=== PATIENT | female | born 1995 | race Caucasian/White ===

== ENCOUNTER 2019-07-16 07:58 | Emergency (ER) | payer MEDICAID, SELFPAY ==
[2019-07-16 08:02] VITALS: BP 127/90; PULSE 115; RESP 16; TEMP 37; O2SAT 98
--- NOTE | 2019-07-16 08:11 | DI.RAD_ITS ---
EXAM: XR FOOT RT COMPLETE INDICATION: prox 5th metatarsal pain s/p fall. COMPARISON: No exams were available for comparison TECHNIQUE: 2D digital imaging was performed. FINDINGS: Three views were obtained. Please see report for radiographs of the ankle. No additional findings i n the foot. IMPRESSION:
--- NOTE | 2019-07-16 08:11 | DI.RAD_ITS ---
EXAM: XR KNEE RT 3V AP,LAT,PEACE INDICATION: lateral/fibular head pain s/p fall. COMPARISON: No exams were available for comparison TECHNIQUE: 2D digital imaging was performed. FINDINGS: Three views were obtained. No bony or soft tissue abnormality seen. IMPRESSION:
--- NOTE | 2019-07-16 08:14 | W.ED.GENAD ---
Discharge Plan Disposition Patient Disposition: HOME Discharge Details Chief Complaint: Orthopedic Clinical Impression: Right ankle sprain Primary Care Provider: Jacob Rao ED Provider: Frank Collins Home Meds and New Rx's Prescriptions: No Action No Known Home Meds RF: 0 Discharge Instructions Instructions: Ankle Sprain (ED) Additional Instructions: Your x-rays were negative for an acute bony injury. Most likely ligamentous sprain. Best treated with supportive care which includes rest, ice and elevation. Wear orthopedic boot as tolerated. Weight-bear as tolerated. Take Tylenol and/or Motrin for pain and swelling. Stand Alone Forms: Work Release Medical Decision Making This is a nontoxic-appearing 24-year-old female presenting to the emergency department with right ankle injury status post fall yesterday evening while intoxicated. No LOC or head injury. She complains of pain along the lateral aspect of her right ankle. She also has notable pain along the fibular head and base the fifth metatarsal on exam. No significant swelling or ecchymosis. X-rays are negative for acute fracture. X-rays include knee ankle and foot films. Discussed supportive care. Will place in a walker boot with crutches and instructed to follow-up with her PCP/orthopedics should her symptoms persist over the next 1 to 2 weeks. Return precautions provided. She is stable for discharge at this time. HPI General Date/Time Provider Initiated Documentation: 07/16/19 08:01. HPI Narrative: Patient is a 24-year-old female with a significant history for previous right ankle surgery for chronic instability who presents to the emergency department with right ankle injury less than 12 hours prior to arrival. Patient states that she was intoxicated and fell down a hill injuring her right ankle. She felt a pop and has had pain and swelling along the lateral anterior aspect of the right ankle since. She also reports knee pain. She also expresses some foot pain with ambulation. She has been able to place mild amount of weight over the extremity however reports to give discomfort. She has chronic numbness and tingling in her toes secondary to her previous ankle surgery. Patient states that she is also been dealing with a sore throat. Patient denies any fevers. No nausea or vomiting. No other URI symptoms. Related Data Home Medications Medication Instructions Recorded Confirmed Unknown [No Known Home Meds] 07/16/19 07/16/19 Allergies Allergy/AdvReac Type Severity Reaction Status Date / Time benzol peroxide Allergy facial Uncoded 07/16/19 08:06 swelling General Stated Complaint: Orthopedic MEGAN: 4 Review of Systems Constitutional Constitutional: Denies chills, Denies fever(s) and Denies lethargy ENT Ears, Nose, Mouth, and Throat: Denies vertigo, Denies dizziness, Denies mouth pain, Denies nasal congestion, Denies nasal discharge, Denies post nasal drip, Denies sinus pain, Denies sinus pressure, Reports sore throat, Denies throat swelling and Denies tongue swelling Respiratory Respiratory: Denies cough Gastrointestinal Gastrointestinal: Denies diarrhea, Denies nausea and Denies vomiting Musculoskeletal Musculoskeletal: Reports abnormal gait, Reports joint swelling and Reports tingling Neurologic Neurologic: Reports abnormal gait, Denies vertigo, Denies dizziness and Reports tingling Hematologic/Lymphatic Hematologic/Lymphatic: Denies easy bleeding and Denies easy bruising Allergic/Immunologic Allergic/Immunologic: Denies throat swelling and Denies tongue swelling PFSH Medical History Anxiety Depression Urinary tract infection Vision problem Surgical History Tonsillectomy (~2003) Tooth extraction Family History Mother Depression Father Depression Sister Depression Sister Depression Other Anxiety Social History Smoking/Tobacco Use Status: Never Drug use: Daily Substance use type: marijuana Do you feel safe in your relationship?: Yes Exam Const General: cooperative, healthy appearing, comfortable and no acute distress [facility] Head: normal to inspection Mouth: oral mucosae normal Throat: posterior oropharynx abnormal erythema; no edema and no exudates Eyes General: appearance normal, both eyes and all related structures Alignment and Position: alignment normal Neck Neck: normal visual inspection, full ROM and no lymphadenopathy Chest Chest: normal inspection of the chest Resp Effort & Inspection: normal respiratory effort Skin Trauma: no lacerations or abrasions Extrem Right lower extremity: normal to inspection, normal capillary refill, knee Details: tenderness Location: of the lateral joint line, ankle Details: tenderness Location: of the lateral malleolus, of the medial malleolus and of the anterior talofibular ligament and foot Details: tenderness Location: of the base of the 5th metatarsal; no edema Course Vital Signs Vital signs: Vital Signs Temperature 37 C 07/16/19 08:02 Pulse 115 H 07/16/19 08:02 Respiratory Rate 16 07/16/19 08:02 Blood Pressure 127/90 07/16/19 08:02 Pulse Oximetry 98 07/16/19 08:02 Temperature 37 C 07/16/19 08:02 Temperature Source Skin 07/16/19 08:02 Pulse 115 H 07/16/19 08:02 Respiratory Rate 16 07/16/19 08:02 Respiratory Effort Non-Labored 07/16/19 08:02 Blood Pressure 127/90 07/16/19 08:02 Blood Pressure Position Sitting 07/16/19 08:02 Pulse Oximetry 98 07/16/19 08:02 Oxygen Delivery Method Room Air 07/16/19 08:02 Oxygen Flow Rate 0 07/16/19 08:02 Pain Level 10 07/16/19 08:02
--- NOTE | 2019-07-16 08:40 | DI.RAD_ITS ---
EXAM: XR ANKLE RT COMPLETE INDICATION: lateral/medial ankle pain s/p fall. COMPARISON: No exams were available for comparison TECHNIQUE: 2D digital imaging was performed. FINDINGS: Three views were obtained. The ankle mortise appears well maintained. Minimal spurring noted at the dorsum of the talonavicular joint. Prominent osteophyte of plantar fascia attachment on the calcane us. No other bony abnormality seen. IMPRESSION:
== END 2019-07-16 09:06 | disposition home or self-care (01) ==
PROVIDERS: Emergency Provider Physician Assistant; PCP Pediatrics
DX: S93.401A Sprain of unspecified ligament of right ankle, initial encounter (principal); F10.120 Alcohol abuse with intoxication, uncomplicated; W17.81XA Fall down embankment (hill), initial encounter
CPT/HCPCS: 29515; 73562; 87880; 99283; 73610; 73630; 87081; 99282; E0114; L4361

== ENCOUNTER 2019-08-17 15:25 | Emergency (ER) | payer MEDICAID, SELFPAY ==
[2019-08-17 15:29] VITALS: BP 145/86; PULSE 122; RESP 16; TEMP 36.2; O2SAT 99
--- NOTE | 2019-08-17 16:29 | ED.GENADUL_ITS ---
Discharge Plan Disposition Patient Disposition: HOME Discharge Details Chief Complaint: Orthopedic Clinical Impression: Encounter for cast removal Primary Care Provider: Jacob Rao ED Provider: Johnathan Leiva Home Meds and New Rx's Prescriptions: No Action Nexplanon 68 mg Implant 1 implant SUBDERMAL ONCE RF: 0 Medical Decision Making 24yo f here requesting cast removal as she was unable to follow-up with orthopedics as scheduled today. Patient has no acute injury or complaint. No pain. Heavy ED patient volume and acuity at time of evaluation. I saw patient in triage to initiate care. I explained to patient that I would contact her processing specialist and confirm plan for cast removal. I explained that she would need to wait until clinical space available for treatment. Patient refused to wait and decided to leave. Patient eloped from ED. NO BILLABLE CARE OR PROCEDURE RENDERED TODAY. HPI General Mode of arrival: ambulatory . Date/Time Provider Initiated Documentation: 08/17/19 15:38 . Limitations to Documentation: no limitations . Information obtained by: patient . HPI Narrative: 24yo f here here requesting removal of cast. Patient has cast placed a few weeks ago for tendon injury. Patient notes no pain or swelling. Patient had appointment for routine cast removal today and she states she could not get to [place] today for cast removal as scheduled and she was instructed to come here for cast removal. We have not received a call from [facility] orthopedics regarding this plan. Related Data Home Medications Medication Instructions Recorded Confirmed etonogestrel [Nexplanon] 1 implant SUBDERMAL ONCE 08/17/19 08/17/19 Allergies Allergy/AdvReac Type Severity Reaction Status Date / Time benzol peroxide Allergy facial Uncoded 08/17/19 15:36 swelling General Stated Complaint: Orthopedic MEGAN: 4 Review of Systems Musculoskeletal Musculoskeletal: Reports as per HPI [facility] Medical History Anxiety Depression Urinary tract infection Vision problem Surgical History Tonsillectomy (~2003) Tooth extraction Family History Mother Depression Father Depression Sister Depression Sister Depression Other Anxiety Social History Smoking/Tobacco Use Status: Never Alcohol Intake: never Drug use: Daily Substance use type: marijuana Do you feel safe at home: Yes Do you feel safe in your relationship?: Yes Exam Const General: cooperative, healthy appearing and comfortable Neuro General: alert and awake Cognition: normal cognition Speech: speech normal Extrem Right lower extremity: lower leg (cast intact) Course Vital Signs Vital signs: Vital Signs Temperature 36.2 C L 08/17/19 15:29 Pulse 122 H 08/17/19 15:29 Respiratory Rate 16 08/17/19 15:29 Blood Pressure 145/86 H 08/17/19 15:29 Pulse Oximetry 99 08/17/19 15:29 Temperature 36.2 C L 08/17/19 15:29 Temperature Source Skin 08/17/19 15:29 Pulse 122 H 08/17/19 15:29 Respiratory Rate 16 08/17/19 15:29 Respiratory Effort Non-Labored 08/17/19 15:36 Blood Pressure 145/86 H 08/17/19 15:29 Blood Pressure Position Supine 08/17/19 15:29 Pulse Oximetry 99 08/17/19 15:29 Oxygen Delivery Method Room Air 08/17/19 15:29 Oxygen Flow Rate 0 08/17/19 15:29 Pain Level 0 08/17/19 15:29
== END 2019-08-17 16:25 | disposition home or self-care (01) ==
PROVIDERS: Emergency Provider Student in an Organized Health Care Education/Training Program; PCP Pediatrics
DX: Z53.29 Procedure and treatment not carried out because of patient's decision for other reasons (principal); Z47.89 Encounter for other orthopedic aftercare

== ENCOUNTER 2019-08-23 16:19 | Outpatient (REF) | payer MEDICAID, SELFPAY ==
--- NOTE | 2019-08-23 15:30 | PAPFT_PTH ---
PATIENT: Dede Cervantes LOC: [facility] U#:[id number] AGE/SX: 24/F ROOM: RE08/23/[address]: SEBASTIÁN Fisher : 1995 BED: DIS: 08/23/2019 SPEC #: [id number] RECD: 08/23/19 17:33 STATUS: BOBY REMarcellus #: [id number] NEEMA: 08/23/19 15:[address]: Judi Alvarenga DEPT: [facility] Cytology RECD BY: Laura Bettencourt ENTERED: 08/23/19 17:33 SP TYPE: PAPFT OTHR DR: Jacob Rao MD Tissues: 1 - CX/ENDOCX FOR PAP SMEARS Procedures: PAP THIN PREP/UVM Screening Comments: [id number]
[2019-08-27 13:56] LABS: Chlamydia Result Negative (Negative)
[2019-08-27 15:09] LABS: GC Result Negative (Negative)
== END 2019-08-23 16:39 ==
LOC: LBN 16:19
PROVIDERS: PCP Pediatrics; Visit Provider Nurse Practitioner Family
DX: Z11.3 Encounter for screening for infections with a predominantly sexual mode of transmission (principal); Z12.4 Encounter for screening for malignant neoplasm of cervix
CPT/HCPCS: 87491; 87591; 88142

== ENCOUNTER 2020-01-28 12:55 | Outpatient (REF) | payer MEDICAID, SELFPAY ==
[2020-01-29 12:54] LABS: Chlamydia Result Negative (Negative); GC Result Negative (Negative)
== END 2020-01-28 13:15 ==
LOC: LBN 12:55
PROVIDERS: Visit Provider Nurse Practitioner Family
DX: R30.0 Dysuria (principal); Z11.3 Encounter for screening for infections with a predominantly sexual mode of transmission
CPT/HCPCS: 87491; 87591; 87086

== ENCOUNTER 2020-05-27 02:56 | Outpatient (CLI) | payer MEDICAID, SELFPAY ==
[2020-05-27 14:18] LABS: ALT 45 U/L (14-59); AST 19 U/L (15-37); Albumin 3.6 g/dL (3.4-5.0); Alkaline Phosphatase 103 U/L (46-116); Anion Gap 5.1 mmol/L (3-11); BUN 12 mg/dL (7-18); Bilirubin, Total 0.5 mg/dL (0.2-1.0); CO2 24.9 mmol/L (21.0-32.0); CREATININE 0.93 mg/dL (0.55-1.02); Calcium 9.3 mg/dL (8.5-10.1); Calculated LDL 100 mg/dL (<100); Chloride 110 mmol/L (98-107); Cholesterol 160 mg/dL (<200); Glucose 89 mg/dL (74-106); HDL Cholesterol 37 mg/dL (40-60); Potassium 4.3 mmol/L (3.5-5.1); Sodium 140 mmol/L (136-145); TSH (W/Ref FT4) 1.64 uIU/mL (0.36-3.74); Total Protein 6.6 g/dL (6.4-8.2); Triglyceride 119 mg/dL (<150)
== END 2020-05-27 03:16 ==
DX: F33.40 Major depressive disorder, recurrent, in remission, unspecified (principal); G47.00 Insomnia, unspecified; I10 Essential (primary) hypertension
CPT/HCPCS: 36415; 80053; 80061; 84443

== ENCOUNTER 2020-06-20 08:42 | Outpatient (CLI) | payer MEDICAID, SELFPAY ==
[2020-06-22 22:35] LABS: Patient Race White; SARS-CoV-2 RNA Undetected (Undetected); SARS-CoV-2 Specimen Source Nasopharynx
== END 2020-06-20 09:02 ==
DX: Z11.59 Encounter for screening for other viral diseases (principal)
CPT/HCPCS: U0003

== ENCOUNTER 2020-08-18 17:17 | Outpatient (REF) | payer MEDICAID, SELFPAY ==
[2020-08-21 05:03] LABS: Patient Race White; SARS-CoV-2 RNA Undetected (Undetected); SARS-CoV-2 Specimen Source Nasal
== END 2020-08-18 17:37 ==
LOC: LBN 17:17
PROVIDERS: Visit Provider Nurse Practitioner Family
DX: J06.9 Acute upper respiratory infection, unspecified (principal)
CPT/HCPCS: U0003

== ENCOUNTER 2020-10-06 12:45 | Outpatient (REF) | payer MEDICAID, SELFPAY ==
--- NOTE | 2020-10-06 11:15 | PAPFT_PTH ---
PATIENT: Dede Cervantes LOC: N U#:[id number] AGE/SX: 25/F ROOM: RE10/06/[address]: SEBASTIÁN Fisher : 1995 BED: DIS: 10/06/2020 SPEC #: [id number] RECD: 10/06/20 12:54 STATUS: BOBY REMarcellus #: [id number] NEEMA: 10/06/20 11:[address]: Judi Alvarenga DEPT: [facility] Cytology RECD BY: Laura Bettencourt ENTERED: 10/06/20 12:54 SP TYPE: PAPFT OTHR DR: Bing Marcelo APRN Tissues: 1 - CX/ENDOCX FOR PAP SMEARS Procedures: PAP THIN PREP/UVM Screening Comments: [id number]
[2020-10-07 15:39] LABS: GC Result Negative (Negative)
[2020-10-07 19:29] LABS: Chlamydia Result Positive (Negative)
== END 2020-10-06 13:05 ==
LOC: LBN 12:45
PROVIDERS: Visit Provider Nurse Practitioner Family
DX: R30.0 Dysuria (principal); Z11.3 Encounter for screening for infections with a predominantly sexual mode of transmission; Z12.4 Encounter for screening for malignant neoplasm of cervix
CPT/HCPCS: 87491; 87591; 88142; 87086

== ENCOUNTER 2020-12-16 02:14 | Outpatient (CLI) | payer MEDICAID, SELFPAY ==
[2020-12-17 13:25] LABS: COVID-19 RT-PCR UVMMC Result Negative (Negative)
== END 2020-12-16 02:15 | disposition home or self-care (01) ==
LOC: LBO 02:15
DX: Z20.822 Contact with and (suspected) exposure to COVID-19 (principal)
CPT/HCPCS: U0003

== ENCOUNTER 2020-12-24 08:21 | Outpatient (CLI) | payer MEDICAID, SELFPAY ==
[2020-12-25 14:22] LABS: COVID-19 RT-PCR UVMMC Result Negative (Negative)
== END 2020-12-24 08:22 | disposition home or self-care (01) ==
DX: Z20.822 Contact with and (suspected) exposure to COVID-19 (principal)
CPT/HCPCS: U0003

== ENCOUNTER 2021-01-22 03:34 | Outpatient (CLI) | payer MEDICAID, SELFPAY ==
[2021-01-23 10:01] LABS: COVID-19 RT-PCR UVMMC Result Negative (Negative)
== END 2021-01-22 03:35 | disposition home or self-care (01) ==
PROVIDERS: Visit Provider Nurse Practitioner Family
DX: Z20.822 Contact with and (suspected) exposure to COVID-19 (principal)
CPT/HCPCS: U0003

== ENCOUNTER 2021-02-04 11:33 | Outpatient (CLI) | payer MEDICAID, SELFPAY ==
--- NOTE | 2021-02-04 10:45 | DI.RAD_ITS ---
Exam(s) XR FOREARM RT XR WRIST RT COMPLETE EXAM: XR WRIST RT COMPLETE and XR forearm RT CLINICAL HISTORY: fall, forearm/wrist pain, M79.601. TECHNIQUE: 2D digital imaging was performed. COMPARISON: CR XR FOREARM RT from 02/04/2021 FINDINGS: BONES: No acute fracture is present. No bony destructive lesion is seen. JOINTS: The carpal bones are normally aligned. The elbow is normally aligned. SOFT TISSUE: Normal. IMPRESSION: No acute fracture or dislocation. DATA REPOSITORY: RADIATION DOSE DELIVERED:
== END 2021-02-04 11:53 ==
PROVIDERS: Visit Provider Physician Assistant
DX: M79.631 Pain in right forearm (principal); M25.531 Pain in right wrist
CPT/HCPCS: 73090; 73110

== ENCOUNTER 2021-04-24 02:26 | Emergency (ER) | payer MEDICAID, SELFPAY ==
[2021-04-24 02:29] VITALS: BP 143/92; PULSE 100; RESP 20; TEMP 36.6; O2SAT 99
--- NOTE | 2021-04-24 02:45 | ED.GENADUL_ITS ---
Discharge Plan Disposition Patient Disposition: HOME Condition: Good Discharge Details Clinical Impression: Dehiscence of closure of skin Primary Care Provider: Bing Marcelo ED Provider: Wellington Figueroa Home Meds and New Rx's Prescriptions: Continued lorazepam [Ativan] 0.5 mg tablet 0.5 mg PO .Q3HS PRN (Reason: anxiety/insomnia) Qty: 7 RF: 0 Nexplanon 68 mg Implant 1 implant SUBDERMAL ONCE RF: 0 Discharge Instructions Instructions: Wound Dehiscence (ED) Additional Instructions: At this time you have a very small area of wound dehiscence. This will take time to heal. It will need to heal from the inside out. The packing will fall out on its own, do not worry about putting it back in. Please continue to take the antibiotic Keflex that was prescribed to you by Dr. Beyer. Please keep the bandage on. Monitor closely for any continued drainage, redness, fever or chills. Please follow-up closely with your plant technical specialist Dr. Beyer. If you notice any worsening of your symptoms, or any new symptoms such as vomiting, diarrhea, fever, chills, shortness of breath, chest pain, numbness, weakness, or fainting , please return immediately to the emergency department for reevaluation. Please follow up with your primary care provider as soon as possible for reassessment and reevaluation. As always, it was a pleasure p articipating in your medical care today. Referrals: Maximino Beyer [ NON-[facility] STAFF PHYSICIAN] - Medical Decision Making This is a pleasant 26-year-old female who presents today for wound recheck. 3 weeks ago she had surgery on her right clavicle after a closed fracture. This was performed by Dr. Beyer. The surgery was uneventful, she has been doing very well, she had absorbable sutures only and Dermabond. Yesterday she noticed a small amount of redness around her postoperative surgical site, she contacted Dr. Beyer's office, and they started her on Keflex. She has taken the first dose. Then this evening while she was sleeping she noticed a small amount of fluid on her neck. She woke up and noticed that there was an area of dehiscence in the surgical site. She came into the ER for further assessment. She denies any new pain, fever or chills. No other complaints at this time. No other modifying factors. Postoperative surgical site appears completely intact aside for a small area that is roughly 7 mm wide in diameter. This area has evidence of dehiscence, and there is a small pocket underneath. No active drainage at this time. Minimal redness surrounding the surgical scar. Minimal warmth. No purulence. No other areas of dehiscence. No significant tenderness over the clavicle. No clinical evidence of a large seroma, or other abscess. The area was gently cleaned with normal saline, a very small amount of iodoform quarter-inch gauze was placed just in the opening. Total length of gauze less than 1 inch. Area was bandaged, redness was marked with marker for demarcation of border. Wound will need to heal through secondary intention secondary to the open pocket beneath the area of dehiscence. Recommend continued Keflex as directed by her plant technical specialist. Bandage was placed over the area. Patient will follow up on Tuesday for already scheduled appointment with Dr. Beyer. With no evidence of significant systemic infection, large abscess, or clinical symptoms of lingering deep infection as she has no fever chills or other complaints, I feel the patient is stable for discharge. Discussed red flags which to return. I have extensively reviewed the treatment plan and discharge instructions with the patient. I have addressed all patient concerns at this time. The patient was made aware of what symptoms to monitor for that would warrant a return to the emergency department. Discussed the plan with the patient, they demonstrate verbal understanding and agreement with our assessment and plan at this time. The documentation in this chart was dictated using [employer] dictation software. Please excuse any dictation errors. HPI General Date/Time Provider Initiated Documentation: 04/24/21 02:29 . HPI Narrative: This is a pleasant 26-year-old female who presents today for wound recheck. 3 weeks ago she had surgery on her right clavicle after a closed fracture. This was performed by Dr. Beyer. The surgery was uneventful, she has been doing very well, she had absorbable sutures only and Dermabond. Yesterday she noticed a small amount of redness around her postoperative surgical site, she contacted Dr. Beyer's office, and they started her on Keflex. She has taken the first dose. Then this evening while she was sleeping she noticed a small amount of fluid on her neck. She woke up and noticed that there was an area of dehiscence in the surgical site. She came into the ER for further assessment. She denies any new pain, fever or chills. No other complaints at this time. No other modifying factors. Related Data Home Medications Medication Instructions Recorded Confirmed Nexplanon 1 implant SUBDERMAL ONCE 08/17/19 02/11/21 lorazepam 0.5 mg tablet 0.5 mg PO .Q3HS PRN #7 tab 11/24/20 02/11/21 Previous Rx's Medication Instructions Recorded lorazepam 0.5 mg tablet 0.5 mg PO .Q3HS PRN #7 tab 11/24/20 Allergies Allergy/AdvReac Type Severity Reaction Status Date / Time benzol peroxide Allergy facial Uncoded 02/03/21 18:49 swelling General Stated Complaint: Recheck MEGAN: 4 Review of Systems All systems reviewed & are unremarkable except as noted in HPI and below PFSH Medical History Anxiety Depression Increased body mass index (BMI) Major depressive disorder, recurrent, unspecified Sinusitis, acute URI (upper respiratory infection) Urinary tract infection Vision problem Surgical History Tonsillectomy (~2003) Tooth extraction Family History Mother Depression Father Depression Sister Depression Asthma Sister Depression Other Anxiety Social History Smoking/Tobacco Use Status: Former Tobacco Use Quit Date: 10/03/14 Tobacco: How many years used: 3 Smoking risk assessment performed?: Yes Alcohol Intake: current Alcohol Intake frequency: a few times a month Alcohol type: wine Drug use: Daily Substance use type: marijuana Caregiver/Support person: Yes Household members: family Housing: house Communication Needs: None Do you need help understanding health information?: Never Pets and animals: Yes Pets and animals: cat(s), dog(s) and horse(s) Sexually active: Yes Do you think of yourself as: straight/heterosexual Current gender identity: female What is your relationship status?: never How often do you talk on the phone with friends or family?: twice per week How often do you get together with friends or relatives?: twice per week How often do you attend yazdanism or protestant services?: decline to answer Do you belong to any clubs or organized social groups?: no Panel score (0-1 are the most socially isolated patients): 1 What type of physical activity do you participate in: walking Duration: 30-45 minutes/day Frequency: daily Landy/Orthodoxy: None Special landy needs: No Seatbelt use: always Helmet use: No Drive intox or ride w/intox regional company flatbed truck driver: No Do you feel safe at home: Yes Do you feel safe in your relationship?: Yes Exam Narrative Exam Narrative: 1.Const: Well-nourished, Well-developed, appearing stated age 2.Eyes: PERRL, no conjunctival injection, and symmetrical lids. 3.ENT: Atraumatic external nose and ears. Moist MM. Neck: Symmetric, trachea midline, No thyromegaly. 4.CVS: +S1/S2, No murmurs or gallops. Peripheral pulses 2+ and equal in all extremities. Brisk capillary refill in all extremities. 5.RESP: Unlabored respiratory effort. Clear to auscultation bilaterally. No wheezes rales or rhonchi 6.GI: Soft, Nontender/Nondistended, No hepatosplenomegaly. No guarding or rebound. 7.MSK: Normocephalic/Atraumatic, Extremities w/o deformity or ttp No cyanosis or clubbing, Normal movement of all extremities 8.Skin: Skin is dry, postoperative surgical site appears completely intact aside for a small area that is roughly 7 mm wide in diameter. This area has evidence of dehiscence, and there is a small pocket underneath. No active drainage at this time. Minimal redness surrounding the surgical scar. Minimal warmth. No purulence or pus. No other areas of dehiscence. No significant tenderness over the clavicle. 9.Neuro: anatomic pathology assistant II-XII grossly intact. Sensation grossly intact, no focal neurologic deficits. 10.Psych: (AAO) x3. Appropriate mood and affect Course Vital Signs Vital signs: Vital Signs Temperature 36.6 C 04/24/21 02:29 Pulse 100 H 04/24/21 02:29 Respiratory Rate 20 04/24/21 02:29 Blood Pressure 143/92 H 04/24/21 02:29 Pulse Oximetry 99 04/24/21 02:29 Temperature 36.6 C 04/24/21 02:29 Temperature Source Temporal Artery Scan 04/24/21 02:29 Pulse 100 H 04/24/21 02:29 Respiratory Rate 20 04/24/21 02:29 Respiratory Effort Non-Labored 04/24/21 02:32 Blood Pressure 143/92 H 04/24/21 02:29 Blood Pressure Position Sitting 04/24/21 02:29 Pulse Oximetry 99 04/24/21 02:29 Oxygen Delivery Method Room Air 04/24/21 02:29 Oxygen Flow Rate 0 04/24/21 02:29 Pain Level 7 04/24/21 02:29
== END 2021-04-24 02:54 | disposition home or self-care (01) ==
PROVIDERS: Emergency Provider Student in an Organized Health Care Education/Training Program
DX: T81.31XA Disruption of external operation (surgical) wound, not elsewhere classified, initial encounter (principal); Y83.8 Other surgical procedures as the cause of abnormal reaction of the patient, or of later complication, without mention of misadventure at the time of the procedure
CPT/HCPCS: 12021

== ENCOUNTER 2021-10-06 14:49 | Outpatient (REF) | payer MEDICAID, SELFPAY ==
--- NOTE | 2021-10-06 13:30 | PAPFT_PTH ---
PATIENT: Dede Cervantes LOC: [facility] U#:[id number] AGE/SX: 26/F ROOM: RE10/06/[address]: SEBASTIÁN Fisher : 1995 BED: DIS: 10/06/2021 SPEC #: [id number] RECD: 10/06/21 18:13 STATUS: BOBY REQ #: [id number] NEEMA: 10/06/21 13:[address]: Judi Alvarenga [facility] Cytology RECD BY: Laura Bettencourt ENTERED: 10/06/21 18:14 SP TYPE: PAPFT OTHR DR: Bing Marcelo APRN Tissues: 1 - CX/ENDOCX FOR PAP SMEARS Procedures: PAP THIN PREP/[facility]VM Screening Comments: [id number]
[2021-10-09 10:41] LABS: Chlamydia Result Negative (Negative); GC Result Negative (Negative)
== END 2021-10-06 14:50 | disposition home or self-care (01) ==
LOC: LBN 14:49
PROVIDERS: Visit Provider Nurse Practitioner Family
DX: Z11.3 Encounter for screening for infections with a predominantly sexual mode of transmission (principal); Z12.4 Encounter for screening for malignant neoplasm of cervix
CPT/HCPCS: 87491; 87591; 88142

== ENCOUNTER 2022-10-22 15:00 | Outpatient (CLI) | payer MEDICAID, SELFPAY ==
--- NOTE | 2022-10-22 15:00 | RT.EKG_ITS ---
APPROVED REPORT Exam: Resting ECG Reason for Exam: medication monitoring Patient Location: O HR:76 bpm ECG Measurements Heart Rate 76 AXIS ND 149 P 22 QRSd 89 QRS 67 QT 380 T 45 QTc 428 Conclusion Sinus arrhythmia...V-rate 63- 90, variation>10% Baseline wander in lead(s) V1,V2,V3,V5,V6 Normal Electrocardiogram
== END 2022-10-22 15:01 | disposition home or self-care (01) ==
LOC: DI.CM 15:01
PROVIDERS: PCP Nurse Practitioner Family; Visit Provider Nurse Practitioner Family
DX: Z51.81 Encounter for therapeutic drug level monitoring (principal)
CPT/HCPCS: 93010

== ENCOUNTER 2022-11-04 04:25 | Outpatient (CLI) | payer MEDICAID, SELFPAY ==
[2022-11-04 13:37] LABS: Abs Immature Grans 0.06 10^3/uL (0.0-0.06); Absolute Basophil Count 0.03 10^3/uL (0.0-0.2); Absolute Eosinophil Count 0.09 10^3/uL (0.0-0.7); Absolute Lymphocyte Count 2.86 10^3/uL (1.2-3.4); Absolute Monocyte Count 0.54 10^3/uL (0.1-0.8); Absolute Neutrophil Count 6.69 10^3/uL (1.2-6.7); Basophils % 0.3; Eosinophils % 0.9; HCT 49.4 % (36.0-46.0); HGB 16.3 g/dL (11.2-15.7); Immature Grans % 0.6; Lymphocytes % 27.8; MCV 85 fL (80-95); Monocytes % 5.3; Neutrophils % 65.1; Platelet Count 335 10^3/uL (130-400); RBC 5.83 10^6/uL (3.93-5.22); RDW 12.7 % (11.7-14.6); RDW-SD 39.1 fL; WBC 10.27 10^3/uL (4.4-10.8)
[2022-11-04 13:50] LABS: ALT 29 U/L (14-59); AST 17 U/L (15-37); Albumin 3.8 g/dL (3.4-5.0); Alkaline Phosphatase 103 U/L (46-116); Amylase 46 U/L (25-115); Anion Gap 13.3 mmol/L (3-11); BUN 13 mg/dL (7-18); Bilirubin, Total 0.4 mg/dL (0.2-1.0); CO2 21.7 mmol/L (21.0-32.0); Calcium 9.2 mg/dL (8.5-10.1); Chloride 105 mmol/L (98-107); Estimated GFR 80.18 (mL/min/1.73m2); Glucose 110 mg/dL (74-106); Lipase 29 U/L (16-77); Potassium 3.9 mmol/L (3.5-5.1); Sodium 140 mmol/L (136-145); Total Protein 7.6 g/dL (6.4-8.2)
[2022-11-04 14:04] LABS: Calculated LDL 77 mg/dL (<100); Cholesterol 138 mg/dL (<200); HDL Cholesterol 41 mg/dL (40-60); Triglyceride 103 mg/dL (<150)
[2022-11-08 13:04] LABS: IgA 134 mg/dL (85-499); Interpretation (See Note); Tissue Transglutaminase IgA <1.2 U/mL (<4.0)
== END 2022-11-04 04:26 | disposition home or self-care (01) ==
LOC: LBO 04:25
PROVIDERS: PCP Nurse Practitioner Family; Visit Provider Nurse Practitioner Family
DX: Z13.220 Encounter for screening for lipoid disorders (principal); R10.10 Upper abdominal pain, unspecified; R19.7 Diarrhea, unspecified
CPT/HCPCS: 36415; 80053; 80061; 82784; 83516; 83690; 82150; 85025

== ENCOUNTER 2023-03-14 20:04 | Outpatient (REF) | payer MEDICAID, SELFPAY ==
[2023-03-16 12:44] LABS: Chlamydia Result Negative (Negative); GC Result Negative (Negative)
== END 2023-03-14 20:05 | disposition home or self-care (01) ==
LOC: LBN 20:04
PROVIDERS: PCP Nurse Practitioner Family; Visit Provider Nurse Practitioner Women's Health
DX: Z11.3 Encounter for screening for infections with a predominantly sexual mode of transmission (principal)
CPT/HCPCS: 87491; 87591

== ENCOUNTER 2024-02-15 15:20 | Outpatient (REF) | payer MEDICAID, SELFPAY ==
[2024-02-18 18:10] LABS: Chlamydia Result Negative (Negative); GC Result Negative (Negative)
== END 2024-02-15 15:21 | disposition home or self-care (01) ==
LOC: LBN 15:20
PROVIDERS: PCP Nurse Practitioner Family; Visit Provider Nurse Practitioner Family
DX: R30.0 Dysuria (principal); A74.9 Chlamydial infection, unspecified; B96.89 Other specified bacterial agents as the cause of diseases classified elsewhere
CPT/HCPCS: 87077; 87491; 87591; 87086

== ENCOUNTER 2025-02-07 00:53 | Outpatient (CLI) | payer MEDICAID, SELFPAY ==
--- NOTE | 2025-02-07 08:30 | DI.MRI_ITS ---
Exam(s) MR BRAIN WO EXAM: MR BRAIN WO CLINICAL HISTORY: worsening HEADACHES, MIGRAINE, resistent to treatment TECHNIQUE: Multiplanar multisequence MRI of the brain was performed. COMPARISON: No exams were available for comparison FINDINGS: VENTRICLES AND EXTRA AXIAL SPACES: Normal in size and morphology for the patient's age. MIDLINE SHIFT: None. CEREBRAL PARENCHYMA: No focus of restricted diffusion to suggest acute infarct. No space-occupying le christine identified. Normal smith-white matter differentiation. No abnormal high signal lesions in the w robi matter. BRAINSTEM/CEREBELLUM: Normal. VISUALIZED PARANASAL SINUSES: Clear. MASTOIDS:Clear. Vasculature: Normal flow void. PITUITARY GLAND: Unremarkable. ORBITS: Unremarkable. IMPRESSION: Unremarkable MRI of the brain. DATA REPOSITORY:
--- NOTE | 2025-02-07 15:04 | DI.RAD_ITS ---
Exam(s) XR CERVICAL SPINE COMP 4-5V EXAM: XR CERVICAL SPINE COMP 4-5V CLINICAL HISTORY: worsening headaches,G43.709. TECHNIQUE: 2D digital imaging was performed. Five views were performed. COMPARISON: CR CERVICAL SP. LIMITED (TRAUMA) from 10/23/2010 FINDINGS: BONES: No fracture or destructive lesion. No evidence of old fracture deformity. Vertebral bodies a re unremarkable. Fixation plate in right clavicle. DISKS: Intervertebral disc spaces are maintained. ALIGNMENT: There is straightening of the normal cervical lordosis which could be secondary to muscle spasm. The odontoid and atlantoaxial articulations are normal. SOFT TISSUE: Surgical clips in the right submandibular area. The lung apices are clear. IMPRESSION: Unremarkable radiographs of the cervical spine. DATA REPOSITORY: RADIATION DOSE DELIVERED:
== END 2025-02-07 01:13 ==
LOC: DI 00:53
PROVIDERS: PCP Nurse Practitioner Family; Visit Provider Nurse Practitioner Family
DX: G43.709 Chronic migraine without aura, not intractable, without status migrainosus (principal)
CPT/HCPCS: 70551; 72050